=== PATIENT | male | born 1950 | race Caucasian/White ===

== ENCOUNTER 2022-11-07 10:23 | Inpatient (IN) | payer OTHER ==
[2022-11-07 12:22] LABS: BASO % 0.2 % (0-2.0); EOS % 0.2 % (0-4.5); HEMATOCRIT 45.2 % (35.4-49); HEMOGLOBIN 15.6 GM/dL (11.7-16.9); LYMPH % 10.7 % (8-40); MCH 28.3 pg (25.7-33.7); MCHC 34.5 g/dl (32.0-35.9); MEAN PLT VOLUME 8.9 fl (7.5-11.1); MONO % 11.1 % (3.8-10.2); NEUT % 77.8 % (42.8-82.8); PLATELET COUNT 204 10^3/uL (134-434); RBC 5.51 M/mm3 (4.00-5.60); RDW 14.3 % (11.9-15.9); WHITE BLOOD COUNT 11.4 K/mm3 (4.0-10.0)
[2022-11-07 12:38] LABS: CALCIUM 8.6 mg/dL (8.5-10.1)
[2022-11-07 12:39] LABS: ALBUMIN 3.6 g/dl (3.4-5.0); BLOOD UREA NITROGEN 13.4 mg/dL (7-18)
[2022-11-07 12:42] LABS: CREATININE 0.9 mg/dL (0.55-1.3)
[2022-11-07 12:43] LABS: BILIRUBIN,TOTAL 1.6 mg/dL (0.2-1)
[2022-11-07 12:44] LABS: TOT PROT 7.8 g/dl (6.4-8.2)
[2022-11-07] MEDS: ALBUTEROL SO4 2.5/IPRATROPIUM 0.5 INH SOL 3 ML VIAL.NEB. NEB SCH ×4 (14:10→21:17)
[2022-11-07] MEDS ORDERED: ALBUTEROL SO4 2.5/IPRATROPIUM 0.5 INH SOL 3 ML VIAL.NEB. NEB ONE ×2 (14:14→15:37)
[2022-11-07] MEDS ORDERED: ACETAMINOPHEN 1000 MG/100 ML BAG IVPB ONE (16:14)
[2022-11-07] MEDS ORDERED: ACETAMINOPHEN INJECTION 100 ML IVPB ONE (16:29)
[2022-11-07] MEDS ORDERED: SODIUM CHLORIDE 1,000 ML IV SCH (17:45)
[2022-11-07] MEDS: guaiFENesin 200 MG/10 ML 10 ML UNIT-DOSE CUPS PO PRN (20:45)
[2022-11-08] MEDS ORDERED: ACETAMINOPHEN 1000 MG/100 ML BAG IVPB PRN (00:30)
[2022-11-08] MEDS: guaiFENesin 200 MG/10 ML 10 ML UNIT-DOSE CUPS PO PRN ×2 (00:40→05:57)
[2022-11-08] MEDS: ALBUTEROL SO4 2.5/IPRATROPIUM 0.5 INH SOL 3 ML VIAL.NEB. NEB SCH ×4 (08:15→20:09)
[2022-11-08 08:56] LABS: BASO % 0.2 % (0-2.0); EOS % 0.3 % (0-4.5); HEMATOCRIT 46.7 % (35.4-49); HEMOGLOBIN 16.1 GM/dL (11.7-16.9); LYMPH % 12.7 % (8-40); MCH 28.9 pg (25.7-33.7); MCHC 34.5 g/dl (32.0-35.9); MEAN CELL VOLUME 83.8 fl (80-96); MEAN PLT VOLUME 9.1 fl (7.5-11.1); MONO % 12.3 % (3.8-10.2); NEUT % 74.5 % (42.8-82.8); PLATELET COUNT 233 10^3/uL (134-434); RBC 5.57 M/mm3 (4.00-5.60)
[2022-11-08 09:00] LABS: WHITE BLOOD COUNT 14.6 K/mm3 (4.0-10.0)
[2022-11-08 09:28] LABS: ALBUMIN 3.4 g/dl (3.4-5.0); BLOOD UREA NITROGEN 24.5 mg/dL (7-18)
[2022-11-08 09:29] LABS: MAGNESIUM 2.3 mg/dL (1.8-2.4)
[2022-11-08 09:31] LABS: CREATININE 1.1 mg/dL (0.55-1.3); PHOSPHOROUS 3.2 mg/dL (2.5-4.9)
[2022-11-08 09:33] LABS: BILIRUBIN,TOTAL 1.8 mg/dL (0.2-1)
[2022-11-08] MEDS ORDERED: ENOXAPARIN NA (PORCINE) 40 MG/0.4 ML DISP.SYRIN SQ SCH (10:00)
[2022-11-08] MEDS ORDERED: PATIENT'S OWN MEDICATION (NON-FORMULARY) (Lisinopril/Hydrochlorothiazide [Lisinopril-Hctz PO SCH (10:00)
[2022-11-08] MEDS: HYDROCHLOROTHIAZIDE 12.5 MG CAPSULE (FP) PO SCH (10:36)
[2022-11-08] MEDS: LISINOPRIL 10 MG TABLET PO SCH (10:36)
[2022-11-08] MEDS: guaiFENesin 600 MG TABLET.ER (FP) PO SCH ×2 (10:36→21:13)
[2022-11-08] MEDS: CODEINE SO4 30 MG TABLET PO PRN ×2 (10:37→21:13)
[2022-11-08 10:56] LABS: BILIRUBIN,DIRECT 0.5 mg/dL (0.0-0.2)
[2022-11-08] MEDS ORDERED: IBUPROFEN 600 MG TABLET (FP) PO PRN (12:15)
[2022-11-08 12:41] LABS: ANISOCYTOSIS 0; MACROCYTOSIS 0
[2022-11-08] MEDS: ENOXAPARIN NA (PORCINE) 40 MG/0.4 ML DISP.SYRIN SQ SCH (21:12)
[2022-11-08] MEDS: MELATONIN 5 MG TABLETS PO PRN (21:13)
[2022-11-09] MEDS: CODEINE SO4 30 MG TABLET PO PRN ×2 (05:52→13:03)
[2022-11-09] MEDS: ALBUTEROL SO4 2.5/IPRATROPIUM 0.5 INH SOL 3 ML VIAL.NEB. NEB SCH ×4 (07:50→20:20)
[2022-11-09 07:56] LABS: INR 1.28 (0.83-1.09); PROTHROMBIN TIME (PATIENT) 14.8 SEC (9.7-13.0)
[2022-11-09 07:58] LABS: ACTIVATED PTT 30.8 SECONDS (25.2-36.5)
[2022-11-09 08:08] LABS: CALCIUM 8.1 mg/dL (8.5-10.1)
[2022-11-09 08:09] LABS: ALBUMIN 2.8 g/dl (3.4-5.0)
[2022-11-09 08:11] LABS: BILIRUBIN,DIRECT 0.3 mg/dL (0.0-0.2)
[2022-11-09 08:13] LABS: TOT PROT 6.8 g/dl (6.4-8.2)
[2022-11-09 09:01] LABS: BASO % 0.1 % (0-2.0); EOS % 1.3 % (0-4.5); HEMATOCRIT 41.5 % (35.4-49); LYMPH % 12.4 % (8-40); MCH 27.3 pg (25.7-33.7); MCHC 33.7 g/dl (32.0-35.9); MEAN PLT VOLUME 8.1 fl (7.5-11.1); MONO % 9.7 % (3.8-10.2); NEUT % 76.5 % (42.8-82.8); PLATELET COUNT 251 10^3/uL (134-434); RBC 5.12 M/mm3 (4.00-5.60); RDW 14.5 % (11.9-15.9); WHITE BLOOD COUNT 9.7 K/mm3 (4.0-10.0)
[2022-11-09] MEDS: HYDROCHLOROTHIAZIDE 12.5 MG CAPSULE (FP) PO SCH (09:52)
[2022-11-09] MEDS: LISINOPRIL 10 MG TABLET PO SCH (09:52)
[2022-11-09] MEDS: guaiFENesin 600 MG TABLET.ER (FP) PO SCH ×2 (09:52→21:39)
[2022-11-09] MEDS: ENOXAPARIN NA (PORCINE) 40 MG/0.4 ML DISP.SYRIN SQ SCH (09:52)
[2022-11-09] MEDS: PANTOPRAZOLE 40 MG TABLET PO SCH (13:05)
[2022-11-09] MEDS ORDERED: ACETAMINOPHEN 325 MG TABLET (FP) PO PRN (15:26)
[2022-11-09] MEDS: MELATONIN 5 MG TABLETS PO PRN (21:39)
[2022-11-10] MEDS: ALBUTEROL SO4 2.5/IPRATROPIUM 0.5 INH SOL 3 ML VIAL.NEB. NEB SCH ×4 (07:20→20:05)
[2022-11-10] MEDS: ENOXAPARIN NA (PORCINE) 40 MG/0.4 ML DISP.SYRIN SQ SCH (09:15)
[2022-11-10] MEDS: LISINOPRIL 10 MG TABLET PO SCH (09:16)
[2022-11-10] MEDS: PANTOPRAZOLE 40 MG TABLET PO SCH (09:16)
[2022-11-10] MEDS: guaiFENesin 600 MG TABLET.ER (FP) PO SCH ×2 (09:16→21:06)
[2022-11-10] MEDS: HYDROCHLOROTHIAZIDE 12.5 MG CAPSULE (FP) PO SCH (09:16)
[2022-11-10 09:37] LABS: BASO % 0.2 % (0-2.0); EOS % 1.2 % (0-4.5); HEMATOCRIT 39.2 % (35.4-49); HEMOGLOBIN 13.4 GM/dL (11.7-16.9); LYMPH % 12.6 % (8-40); MCH 28.1 pg (25.7-33.7); MCHC 34.2 g/dl (32.0-35.9); MEAN CELL VOLUME 82.3 fl (80-96); MEAN PLT VOLUME 8.5 fl (7.5-11.1); MONO % 11.1 % (3.8-10.2); NEUT % 74.9 % (42.8-82.8); PLATELET COUNT 257 10^3/uL (134-434); RBC 4.76 M/mm3 (4.00-5.60); RDW 14.5 % (11.9-15.9); WHITE BLOOD COUNT 8.2 K/mm3 (4.0-10.0)
[2022-11-10] MEDS ORDERED: DOXYCYCLINE HYCLATE 100 MG CAPSULE PO SCH (10:00)
[2022-11-10 10:04] LABS: CALCIUM 8.5 mg/dL (8.5-10.1)
[2022-11-10 10:08] LABS: CREATININE 0.8 mg/dL (0.55-1.3)
[2022-11-10] MEDS ORDERED: predniSONE 20 MG TABLET (UD) PO ONE (14:00)
[2022-11-10] MEDS: CODEINE SO4 30 MG TABLET PO PRN ×2 (14:12→23:12)
[2022-11-10] MEDS: BENZOCAINE/MENTH/CETYLPYRD CL 1 EACH LOZENGE MM PRN ×3 (14:15→21:11)
[2022-11-10] MEDS: FLUTICASONE PROP 0.05% 16 GM NASAL SPRAY NS SCH ×2 (16:39→21:07)
[2022-11-10] MEDS: SENNOSIDES 8.6MG TABLET (FP) PO SCH (21:06)
[2022-11-10] MEDS: POLYETHYLENE GLYCOL (HEALTHYLAX) 3350 17 GM PACKET PO SCH (21:07)
[2022-11-11] MEDS: levoFLOXacin 750 MG TABLET PO SCH (06:28)
[2022-11-11 07:38] LABS: BASO % 0.1 % (0-2.0); EOS % 0.1 % (0-4.5); HEMATOCRIT 37.8 % (35.4-49); HEMOGLOBIN 13.1 GM/dL (11.7-16.9); LYMPH % 8.6 % (8-40); MCH 28.5 pg (25.7-33.7); MCHC 34.6 g/dl (32.0-35.9); MEAN CELL VOLUME 82.4 fl (80-96); MEAN PLT VOLUME 8.1 fl (7.5-11.1); MONO % 7.6 % (3.8-10.2); NEUT % 83.6 % (42.8-82.8); PLATELET COUNT 275 10^3/uL (134-434); RBC 4.59 M/mm3 (4.00-5.60); RDW 14.4 % (11.9-15.9); WHITE BLOOD COUNT 9.6 K/mm3 (4.0-10.0)
[2022-11-11 08:08] LABS: ALBUMIN 2.8 g/dl (3.4-5.0); BLOOD UREA NITROGEN 24.2 mg/dL (7-18); CALCIUM 8.7 mg/dL (8.5-10.1); MAGNESIUM 2.6 mg/dL (1.8-2.4)
[2022-11-11 08:11] LABS: CREATININE 0.9 mg/dL (0.55-1.3); PHOSPHOROUS 3.4 mg/dL (2.5-4.9)
[2022-11-11 08:12] LABS: BILIRUBIN,TOTAL 0.4 mg/dL (0.2-1)
[2022-11-11 08:13] LABS: TOT PROT 6.7 g/dl (6.4-8.2)
[2022-11-11] MEDS: ALBUTEROL SO4 2.5/IPRATROPIUM 0.5 INH SOL 3 ML VIAL.NEB. NEB SCH ×4 (08:20→19:36)
[2022-11-11] MEDS: PANTOPRAZOLE 40 MG TABLET PO SCH (09:24)
[2022-11-11] MEDS: POLYETHYLENE GLYCOL (HEALTHYLAX) 3350 17 GM PACKET PO SCH ×2 (09:24→21:23)
[2022-11-11] MEDS: ENOXAPARIN NA (PORCINE) 40 MG/0.4 ML DISP.SYRIN SQ SCH (09:24)
[2022-11-11] MEDS: guaiFENesin 600 MG TABLET.ER (FP) PO SCH ×2 (09:24→21:23)
[2022-11-11] MEDS: LISINOPRIL 10 MG TABLET PO SCH (09:24)
[2022-11-11] MEDS: FLUTICASONE PROP 0.05% 16 GM NASAL SPRAY NS SCH ×2 (09:25→21:23)
[2022-11-11] MEDS: BENZOCAINE/MENTH/CETYLPYRD CL 1 EACH LOZENGE MM PRN ×2 (13:18→21:23)
[2022-11-11 13:57] VITALS: BMI 26.9
[2022-11-11] MEDS: SENNOSIDES 8.6MG TABLET (FP) PO SCH (21:23)
[2022-11-11 23:07] VITALS: RESP 18
[2022-11-12] MEDS: guaiFENesin/CODEINE 10 ML UNIT-DOSE CUPS PO PRN ×2 (00:51→08:10)
[2022-11-12] MEDS: levoFLOXacin 750 MG TABLET PO SCH (05:13)
[2022-11-12] MEDS: ALBUTEROL SO4 2.5/IPRATROPIUM 0.5 INH SOL 3 ML VIAL.NEB. NEB SCH ×2 (07:41→11:51)
[2022-11-12] MEDS: BENZOCAINE/MENTH/CETYLPYRD CL 1 EACH LOZENGE MM PRN (08:11)
[2022-11-12 08:18] LABS: HEMATOCRIT 37.7 % (35.4-49); MCH 27.9 pg (25.7-33.7); MCHC 34.4 g/dl (32.0-35.9); MEAN CELL VOLUME 81.1 fl (80-96); MEAN PLT VOLUME 7.4 fl (7.5-11.1); PLATELET COUNT 284 10^3/uL (134-434); RBC 4.65 M/mm3 (4.00-5.60); RDW 14.9 % (11.9-15.9); WHITE BLOOD COUNT 8.1 K/mm3 (4.0-10.0)
[2022-11-12 09:12] LABS: ALBUMIN 2.9 g/dl (3.4-5.0); CALCIUM 8.7 mg/dL (8.5-10.1)
[2022-11-12 09:13] LABS: BLOOD UREA NITROGEN 28.2 mg/dL (7-18)
[2022-11-12 09:17] LABS: BILIRUBIN,TOTAL 0.7 mg/dL (0.2-1); TOT PROT 6.8 g/dl (6.4-8.2)
[2022-11-12] MEDS: FLUTICASONE PROP 0.05% 16 GM NASAL SPRAY NS SCH (10:16)
[2022-11-12] MEDS: LISINOPRIL 10 MG TABLET PO SCH (10:17)
[2022-11-12] MEDS: ENOXAPARIN NA (PORCINE) 40 MG/0.4 ML DISP.SYRIN SQ SCH (10:17)
[2022-11-12] MEDS: guaiFENesin 600 MG TABLET.ER (FP) PO SCH (10:17)
[2022-11-12] MEDS: PANTOPRAZOLE 40 MG TABLET PO SCH (10:17)
[2022-11-12] MEDS: POLYETHYLENE GLYCOL (HEALTHYLAX) 3350 17 GM PACKET PO SCH (10:17)
[2022-11-12 12:11] VITALS: PULSE 85
[2022-11-12 14:00] VITALS: BP 137/75; TEMP 98.1
== END 2022-11-12 13:36 | disposition home or self-care (01) | DRG 194 ==
LOC: JER 10:23 → JERBED 19:24 → J4S 20:15
PROVIDERS: ADMIT Internal Medicine; ATTEND Internal Medicine
DX: J18.9 Pneumonia, unspecified organism (principal); E87.1 Hypo-osmolality and hyponatremia; I10 Essential (primary) hypertension; D64.9 Anemia, unspecified; D72.829 Elevated white blood cell count, unspecified; R00.0 Tachycardia, unspecified; R91.8 Other nonspecific abnormal finding of lung field; R50.9 Fever, unspecified
CPT/HCPCS: 0241U-QW; 36415; 71045-TC-FY; 71046-TC-FY; 71250-TC; 71270-TC; 80048; 80053; 80076; 82248; 83735; 84100; 84443; 84484; 85025; 85027; 85610; 85730; 86480; 87070; 87077; 87205; 87899; 93005; 93010; 94640; 94761; 99285-25; Q9967